=== PATIENT | female | born 1980 | race Caucasian/White ===

== ENCOUNTER 2020-02-23 08:24 | Emergency (ER) | payer OTHER ==
[2020-02-23 08:33] VITALS: BMI 30.6
[2020-02-23] MEDS ORDERED: SODIUM CHLORIDE 0.9% 500 ML INFUS.BAG IV ONE (09:26)
[2020-02-23] MEDS ORDERED: METOCLOPRAMIDE HCL INJECTION 10 MG/2 ML VIAL IVPUSH ONE (09:27)
--- NOTE | 2020-02-23 09:35 | PDOC ---
History of Present Illness - General Chief Complaint: Pain, Acute Stated Complaint: WEAKNESS Time Seen by Provider: 02/23/20 08:42 History Source: Patient Exam Limitations: No Limitations - History of Present Illness Initial Comments: 02/23/20 09:28 This is a 39-year-old female no past medical history G3, P0 (2 miscarriages) currently 8 weeks presenting to the ED with generalized weakness fatigue chest pain with palpitations lower abdominal pain and dizziness. Patie nt states that when she rises from a seated position she feels very weak and dizzy and experiences palpitations. Patient is also complaining of GERD-like symptoms with a brash water taste in her mouth. Patient also is also complaining of lower abdominal pain without vaginal bleeding or discharge but is stating that she has some dysuria. Patient had several episodes of nausea with nonbloody nonbilious vomiting she was seen by her outpatient PCP who prescribed her famotidine and Reglan without relief. Patient is furthermore complaining of a occipital headache that started after the vomiting. Headache not associated with lacrimation, fever, changes in vision, photophobia or neck stiffness; not maximal intensity at onset and non-exertional at onset. Pt otherwise denies: fevers, chills, syncope, lightheadedness, headaches, neck pain, shortness of breath, back pain, diarrhea, constipation. Past History - Medical History Allergies/Adverse Reactions: Allergies Allergy/AdvReac Type Severity Reaction Status Date / Time No Known Allergies Allergy Verified 02/23/20 08:35 Home Medications: Ambulatory Orders Cephalexin [Keflex] 500 mg PO BID #10 capsule 02/23/20 Famotidine 40 mg PO BID 02/23/20 Metoclopramide HCl 10 mg PO PRN 02/23/20 COPD: No - Reproductive History Is Patient Now?: Yes - Immunization History Immunization Up to Date: No - Psycho-Social/Smoking History Smoking History: Never smoked Have you smoked in the past 12 months: No Information on smoking cessation initiated: No - Substance Abuse Hx (Audit-C & DAST Scrn) How often the patient has a drink containing alcohol: Never Score: In Men: 4 or > Positive; In Women: 3 or > Positive: 0 Screen Result (Pos requires Nsg. Audit-10AR): Negative In the last yr the pt used illegal drug/Rx for NonMed reason: No Score: Yes response is considered Positive: 0 Screen Result (Positive result requires Nsg. DAST-10): Negative *Physical Exam - Vital Signs Last Vital Signs Temp Pulse Resp BP Pulse Ox 98.5 F 96 H 20 113/67 99 02/23/20 08:28 02/23/20 08:28 02/23/20 08:28 02/23/20 08:28 02/23/20 08:28 - Physical Exam 02/23/20 09:32 Gen: AAOx 3, no acute distress, comfortable, no signs of respiratory distress HENT: atraumatic, normocephalic with no laceration or contusion. Nasal mucosa without erythema. Oropharynx without erythema or exudates. Mucous membranes moist. EYES: PERRL, EOM intact, conjunctiva pink NECK: supple; trachea midline; no JVD, no lymphadenopathy, or thyromegaly CV: RRR no murmurs, gallops, or rubs. CHEST: CTA b/l no wheezing, rales or rhonchi ABD: +BS/ND. no TTP; soft, no rebound, no guarding EXTREMITY: no cyanosis or erythema. 2+ dorsalis pedis, posterior tibial, and radial pulse. No pedal edema; no calf swelling or tenderness SKIN: no rash, warm and dry, no diaphoresis HEME: no purpura or ecchymosis NEURO: normal speech, CN II-XII intact, sensation intact, normal gait, no cerebellar deficits MS: 5/5 strength in all extremities, FROM intact in all extremities. ED Treatment Course - LABORATORY CBC & Chemistry Diagram: 02/23/20 09:50 02/23/20 09:50 - RADIOLOGY Radiology Studies Ordered: Category Date Time Status CHEST PA & LAT [RAD] Stat Radiology 02/23/20 09:26 Ordered TRANSVAGINAL US PREG [US] Stat Ultrasound 02/23/20 09:27 Ordered Medical Decision Making - Medical Decision Making 02/23/20 09:33 39-year-old female G3, P0 8 weeks gestation presenting with multiple complaints Vital signs stable PERC negative We will assess for cardiac abnormalities as well as abnormalities of as well as ectopic Will obtain labs EKG chest x-ray (will ensure patient is properly shielded) transvaginal ultrasound doppler US We will give normal saline and Reglan for symptomatic relief Will reassess based on results Labs show white blood cell count of 14 (most likely normal variant of ) H/H: 12.3/38 Beta hCG 57,234.1 UA shows UTI Rh: positive EKG NSR DVT study negative TVUS shows single live intrauterine of 8 weeks 1 day gestational age with small subchorionic bleed Pt deferred Chest XR 2/2 concerns Patient is currently tolerating p.o. in the ED and states that her nausea and dizziness have resolved and she feels much better with fluids and meds. MCKEON resolved in ED Will administer 1 g ceftriaxone in the ED for UTI Pt appears much better than original presentation Pt is safe and stable for discharge with close follow up and strict return precautions I explained to pt signs and symptoms promting immediately return. Supportive care instructions explained and given to pt. Reasons to return emergently to ER explained and given. Importance of follow up with PMD and other specialists as indicated stressed to pt. Pt verbalized understanding of instructions. Pt to follow up with PMD in 2 days. Discharge - Discharge Information Problems reviewed: Yes Clinical Impression/Diagnosis: Abdominal pain Qualifiers: Abdominal location: unspecified location Qualified Code(s): R10.9 - Unspecified abdominal pain UTI (urinary tract infection) Qualifiers: Urinary tract infection type: acute cystitis Hematuria presence: without h ematuria Qualified Code(s): N30.00 - Acute cystitis without hematuria Condition: Stable Disposition: HOME - Additional Discharge Information Prescriptions: Cephalexin [Keflex] 500 mg PO BID #10 capsule - Follow up/Referral Referrals: ON STAFF,NOT [Primary Care Provider] - - Patient Discharge Instructions Patient Printed Discharge Instructions: DI for Urinary Tract Infection (UTI) Additional Instructions: RETURN TO THE ED IF SYMPTOMS WORSEN FOLLOW UP WITH FOSTER WINDER AND PCP WITHOUT FAIL - Post Discharge Activity Work/Back to School Note: Back to Work
[2020-02-23] MEDS ORDERED: METOCLOPRAMIDE HCL INJECTION 10 MG/2 ML VIAL ONE (09:36)
[2020-02-23 10:15] LABS: INR 1.32 (0.83-1.09); PROTHROMBIN TIME (PATIENT) 15.6 SEC (9.7-13.0)
[2020-02-23 10:18] LABS: ACTIVATED PTT 25.9 SECONDS (25.2-36.5)
[2020-02-23 10:40] LABS: BASO % 0.1 % (0-2.0); EOS % 0.1 % (0-4.5); HEMOGLOBIN 12.3 GM/dL (10.7-15.3); LYMPH % 8.6 % (8-40); MCH 20.1 pg (25.7-33.7); MCHC 32.4 g/dl (32.0-36.0); MEAN CELL VOLUME 61.9 fl (80-96); MEAN PLT VOLUME 10.4 fl (7.5-11.1); MONO % 2.5 % (3.8-10.2); NEUT % 88.7 % (42.8-82.8); PLATELET COUNT 227 K/MM3 (134-434); RBC 6.14 M/mm3 (3.60-5.2); RDW 15.7 % (11.6-15.6)
[2020-02-23 10:43] LABS: ALBUMIN 3.7 g/dl (3.4-5.0); ALK PHOS 61 U/L (45-117); ANION GAP 6 MMOL/L (8-16); BILIRUBIN,TOTAL 0.4 mg/dL (0.2-1); CALCIUM 9.3 mg/dL (8.5-10.1); CHLORIDE 106 mmol/L (98-107); CO2 24 mmol/L (21-32); CREATININE 0.6 mg/dL (0.55-1.3); GLUCOSE,RANDOM 93 mg/dL (74-106); LIPASE 209 U/L (73-393); N-TERMINAL BNP 99.5 pg/ml (5-125); POTASSIUM 4.4 mmol/L (3.5-5.1); SGOT/AST 14 U/L (15-37); SGPT/ALT 17 U/L (13-61); SODIUM 136 mmol/L (136-145); TOT PROT 7.7 g/dl (6.4-8.2)
[2020-02-23 10:46] LABS: EPI CELLS 32 /uL (0-25.1); HYALINE CASTS 1 /uL (0-3.1); URINE APPEARANCE Error; URINE BACTERIA 990 /uL (0-1359); URINE BILIRUBIN NEGATIVE (NEGATIVE); URINE COLOR YELLOW; URINE GLUCOSE (UA) NEGATIVE (NEGATIVE); URINE KETONE NEGATIVE (NEGATIVE); URINE LEUK ESTERASE 1+ (NEGATIVE); URINE NITRITE NEGATIVE (NEGATIVE); URINE PROTEIN NEGATIVE (NEGATIVE); URINE RBC 11 /uL (0-23.9); URINE WBC 36 /uL (0-25.8)
[2020-02-23 11:01] LABS: BLOOD UREA NITROGEN 13.7 mg/dL (7-18)
[2020-02-23 11:51] LABS: ANISOCYTOSIS 2+; MACROCYTOSIS 0; PLATELET ESTIMATE NORMAL
[2020-02-23] MEDS ORDERED: CEFTRIAXONE 1,000 MG in DEXTROSE 5%-WATER - 50 ML IVPB ONE (12:06)
[2020-02-23] MEDS ORDERED: CEFTRIAXONE 1 GM/50 ML BAG ONE (12:36)
[2020-02-23 13:40] VITALS: BP 102/58; PULSE 87; TEMP 99.8
--- NOTE | 2020-02-24 13:25 | EKG ---
Test Reason : Blood Pressure : / mmHG Vent. Rate : 079 BPM Atrial Rate : 079 BPM P-R Int : 134 ms QRS Dur : 090 ms QT Int : 392 ms P-R-T Axes : 061 043 021 degrees QTc Int : 449 ms NORMAL SINUS RHYTHM NORMAL ECG NO PREVIOUS ECGS AVAILABLE Confirmed by Beth Gómez ([id number]) on 02/24/2020 1:24:33 PM Referred By: Confirmed By:Beth Gómez
== END 2020-02-23 13:50 | disposition home or self-care (01) ==
LOC: JER 08:24
PROC: 3E033NZ Introduction of Analgesics, Hypnotics, Sedatives into Peripheral Vein, Percutaneous Approach (ICD-10-PCS; principal; 2020-02-23)
PROC: 3E03329 Introduction of Other Anti-infective into Peripheral Vein, Percutaneous Approach (ICD-10-PCS; 2020-02-23)
DX: N30.00 Acute cystitis without hematuria (principal)
CPT/HCPCS: 36415; 76801-TC; 80053; 81003; 82550; 83690; 83880; 84484; 84702; 85025; 85610; 85730; 86850; 86900; 86901; 87086; 93005; 93010; 93970-TC; 99285-25